=== PATIENT | female | born 1945 | race Caucasian/White ===

== ENCOUNTER 2024-09-02 11:31 | Outpatient (RCR) | payer MEDICARE, SELFPAY | END 2024-12-05 12:49 | disposition home or self-care (01) | LOC: HO.WCC 11:31 | PROVIDERS: Visit Provider Surgery | DX: L98.492 Non-pressure chronic ulcer of skin of other sites with fat layer exposed (principal); Z79.899 Other long term (current) drug therapy; C50.911 Malignant neoplasm of unspecified site of right female breast; L30.9 Dermatitis, unspecified; Z92.3 Personal history of irradiation | CPT/HCPCS: 11042; 97602; 99212; 99213; 99214 ==

== ENCOUNTER 2025-03-31 12:30 | Outpatient (RCR) | payer MEDICARE, SELFPAY | END 2025-03-31 16:42 | disposition home or self-care (01) | LOC: HO.WCC 12:30 | PROVIDERS: Visit Provider Surgery | DX: L98.492 Non-pressure chronic ulcer of skin of other sites with fat layer exposed (principal); L30.9 Dermatitis, unspecified; I10 Essential (primary) hypertension; G62.9 Polyneuropathy, unspecified; Z92.3 Personal history of irradiation; Z85.3 Personal history of malignant neoplasm of breast; Z87.891 Personal history of nicotine dependence | CPT/HCPCS: 11042; 97597; 99213 ==